=== PATIENT | female | born 1985 | race Caucasian/White ===

== ENCOUNTER 2016-10-07 03:39 | Inpatient (IN) | payer OTHER ==
[~2016-10-07] VITALS: Ht 154.9 cm; Wt 64.4 kg
[2016-10-07] VITALS (21 sets, daily range): BP systolic 106–137; BP diastolic 56–82
[~2016-10-07 03:39] MED LIST: BCP
[2016-10-07 04:30] LABS: EOSINOPHIL (%) 0.6 % (0-5); EOSINOPHIL COUNT 0.1 K/uL (0-0.3); HEMATOCRIT 39.6 % (36.0-46.0); IMMATURE GRANULOCYTE (%) 0.4 % (0.0-0.7); INSTRUMENT ABS NEUTROPHIL CT 5.7 K/uL; LYMPHOCYTE COUNT 3.2 K/uL (1.0-2.8); MCHC 34.6 G/DL (30.0-36.0); MCV 89.6 FL (83-99); MEAN PLAT.VOLUME 10.6 uM^3 (9.5-12.4); MONOCYTE (%) 5.7 % (3-12); MONOCYTE COUNT 0.5 K/uL (0-0.8); NEUTROPHIL (%) 59.8 % (45-76); NEUTROPHIL COUNT 5.7 K/uL (1.8-6.4); PLATELET COUNT 186 K/uL (156-360); RBC DIS.WIDTH-CV 12.4 % (11.8-14.6); RBC DIS.WIDTH-SD 40.8 % (39-53); RED BLOOD COUNT 4.42 M/uL (3.80-5.20); WHITE BLOOD COUNT 9.5 K/uL (4.1-10.2)
[2016-10-07] MEDS ORDERED: PRENATAL TABLE1 EAC3 PO (06:09)
[2016-10-07] MEDS ORDERED: MOTRIN800 MG PO (14:56)
[2016-10-08 07:08] LABS: EOSINOPHIL (%) 0.7 % (0-5); EOSINOPHIL COUNT 0.1 K/uL (0-0.3); HEMATOCRIT 31.9 % (36.0-46.0); IMMATURE GRANULOCYTE (%) 0.8 % (0.0-0.7); IMMATURE GRANULOCYTE COUNT 0.1 K/uL; LYMPHOCYTE COUNT 3.5 K/uL (1.0-2.8); MCH 32.7 PG (29.0-34.0); MCHC 35.1 G/DL (30.0-36.0); MCV 93.3 FL (83-99); MEAN PLAT.VOLUME 10.9 uM^3 (9.5-12.4); MONOCYTE (%) 4.2 % (3-12); MONOCYTE COUNT 0.7 K/uL (0-0.8); NEUTROPHIL (%) 72.8 % (45-76); PLATELET COUNT 156 K/uL (156-360); RBC DIS.WIDTH-CV 12.9 % (11.8-14.6); RBC DIS.WIDTH-SD 43.6 % (39-53); WHITE BLOOD COUNT 16.4 K/uL (4.1-10.2)
[2016-10-08 07:10] LABS: RED BLOOD COUNT 3.42 M/uL (3.80-5.20)
[2016-10-08 07:40] VITALS: BP 119/75
[2016-10-08 14:27] VITALS: BP 121/72
[2016-10-09 07:19] VITALS: BP 100/78
== END 2016-10-09 12:15 | disposition home or self-care (01) | DRG 775 ==
LOC: LDRP-OP 03:39 → 2WEST 03:40 → LDRP-OP 11-01 16:45
PROVIDERS: Midwife; Nurse Practitioner
DX: O69.1XX0 Labor and delivery complicated by cord around neck, with compression, not applicable or unspecified (principal); O77.0 Labor and delivery complicated by meconium in amniotic fluid; O99.89 Other specified diseases and conditions complicating pregnancy, childbirth and the puerperium; G89.29 Other chronic pain; M54.9 Dorsalgia, unspecified; O99.52 Diseases of the respiratory system complicating childbirth; J45.20 Mild intermittent asthma, uncomplicated; Z3A.40 40 weeks gestation of pregnancy; Z37.0 Single live birth
CPT/HCPCS: 85025; C1755; J0595; J3010; J7120

== ENCOUNTER 2017-06-20 10:38 | Emergency (ER) | payer OTHER ==
[~2017-06-20] VITALS: Ht 154.9 cm; Wt 49.7 kg
[~2017-06-20 10:38] MED LIST changes: +MOTRIN800 MG PO; +PRENATAL TABLE1 EAC3 PO
[2017-06-20 11:39] LABS: BASOPHIL (%) 0.4 % (0-1); EOSINOPHIL (%) 0 % (0-5); HEMATOCRIT 42.7 % (36.0-46.0); IMMATURE GRANULOCYTE (%) 0.3 % (0.0-0.7); LYMPHOCYTE (%) 5.1 % (15-42); LYMPHOCYTE COUNT 0.4 K/uL (1.0-2.8); MCHC 35.1 G/DL (30.0-36.0); MCV 88.2 FL (83-99); MONOCYTE (%) 3.5 % (3-12); MONOCYTE COUNT 0.3 K/uL (0-0.8); NEUTROPHIL (%) 90.7 % (45-76); NEUTROPHIL COUNT 6.9 K/uL (1.8-6.4); PLATELET COUNT 299 K/uL (156-360); RBC DIS.WIDTH-CV 11.5 % (11.8-14.6); RBC DIS.WIDTH-SD 36.9 % (39-53); RED BLOOD COUNT 4.84 M/uL (3.80-5.20); WHITE BLOOD COUNT 7.7 K/uL (4.1-10.2)
[2017-06-20 11:57] LABS: CHLORIDE 108 mEq/L (99-109); SODIUM 143 mEq/L (136-147)
[2017-06-20 11:59] LABS: GLUCOSE 109 mg/dL (70-99)
[2017-06-20 12:03] LABS: CREATININE 0.8 mg/dL (0.6-1.3); GFR ESTIMATE (CALCULATED) > 59 mL/min/
[2017-06-20 12:04] LABS: UREA NITROGEN (BUN) 22 mg/dL (9-23)
[2017-06-20] MEDS ORDERED: BENTYL20 MG PO (13:54)
[2017-06-20] MEDS ORDERED: IMODIUM A-D2 M2 PO (13:54)
[2017-06-20] MEDS ORDERED: ZOFRAN4 MG PO (13:54)
[2017-06-20 14:11] VITALS: BP 92/61
== END 2017-06-20 14:11 | disposition home or self-care (01) ==
LOC: EME 10:38
PROVIDERS: Emergency Medicine
DX: R11.2 Nausea with vomiting, unspecified (principal); R19.7 Diarrhea, unspecified
CPT/HCPCS: 80048; 85025; 87493; 99281; 99285; J1885; J2405; J7030